=== PATIENT | female | born 1965 | race Caucasian/White ===

== ENCOUNTER 2019-04-17 15:25 | Emergency (ER) | payer MEDICAID ==
[~2019-04-17] VITALS: Ht 152.4 cm; Wt 53.6 kg
[2019-04-17 15:38] VITALS: BP 152/93
[2019-04-17] MEDS ORDERED: HYDROcodone/acetaminophen 5mg/325mg tablet PO ONE (16:30)
[2019-04-17] MEDS ORDERED: HYDR-3965 PO (16:47)
== END 2019-04-17 17:40 | disposition home or self-care (01) ==
LOC: ER 15:26
DX: S82.041A Displaced comminuted fracture of right patella, initial encounter for closed fracture (principal); S82.832A Other fracture of upper and lower end of left fibula, initial encounter for closed fracture; M79.7 Fibromyalgia; F17.200 Nicotine dependence, unspecified, uncomplicated; Z88.1 Allergy status to other antibiotic agents; X50.1XXA Overexertion from prolonged static or awkward postures, initial encounter; Y93.01 Activity, walking, marching and hiking; Y92.89 Other specified places as the place of occurrence of the external cause; Y99.9 Unspecified external cause status
CPT/HCPCS: 29505; 29515; 73564; 73610; 99284